=== PATIENT | female | born 1955 | race Asian ===

== ENCOUNTER 2017-09-27 23:19 | Emergency (ER) | payer SELFPAY ==
[2017-09-27 23:32] VITALS: TEMP 98.2
[2017-09-28] MEDS ORDERED: FAMOTIDINE 20 MG/2 ML SDV IVP ONE (00:10)
[2017-09-28] MEDS ORDERED: methylPREDNISolone SOD SUCC 125 MG/2 ML VIAL IVP ONE (00:10)
--- NOTE | 2017-09-28 00:12 | EDPHY ---
H & P Stated Complaint: daughter says pt began having allergic rxn approx 1500, unk cause- poss abx Time Seen by Provider: 09/27/17 23:42 HPI/ROS: Chief Complaint: Allergic reaction HPI: 62-year-old woman started taking Macrobid 2 days ago for urinary tract infection. Today she is complaining of itchy eyes is had worsening developing redness and swelling around both of her eyes and her chin. She did take some Claritin and some Benadryl without any relief. Does not have any other rash. A little bit of fullness in scratchiness in her throat. No fevers or chills. No nausea or vomiting. Does have a history of similar reactions in the past. She does have allergies to penicillin and cephalosporins. She has taken clinical lungs in the past for urinary tract infections. ROS: 10 point Review of Systems is negative except as noted in the HPI. PMH: Denies Social History: No smoking, no alcohol, no recreational drug use Family History: non-contributory Physical Exam: Gen: Awake, Alert, No Distress HEENT: Bilateral mild jessie orbital edema with mild erythema which is symmetrical. There is also some urticaria below her mouth on her chin. Nose: no rhinorrhea Eyes: PERRLA, EOMI Mouth: Moist mucosa Neck: Supple, no JVD Chest: nontender, lungs clear to auscultation Heart: S1, S2 normal, no murmur Abd: Soft, non-tender, no guarding Back: no CVA tenderness, no midline tenderness Ext: no edema, non-tender Skin: no rash Neuro: CN II-XII intact, Sensation grossly intact, Strength 5/5 in bilateral upper and lower extremities - Medical/Surgical History Other PMH: hypothyroid - Social History Smoking Status: Never smoked Constitutional: Initial Vital Signs Temperature (C) 36.8 C 09/27/17 23:25 Heart Rate 80 09/27/17 23:25 Respiratory Rate 18 09/27/17 23:25 Blood Pressure 155/91 H 09/27/17 23:25 O2 Sat (%) 93 09/27/17 23:25 O2 Delivery Mode Room Air Allergies/Adverse Reactions: Cephalosporins Allergy (Verified 09/27/17 23:32) Penicillins Allergy (Verified 09/27/17 23:32) salmon Allergy (Uncoded 09/27/17 23:32) Home Medications: Medication Instructions Recorded Levothyroxine 09/27/17 Macrobid 09/27/17 Ciprofloxacin [Cipro] 500 mg PO BID #10 tab 09/28/17 predniSONE 60 mg PO DAILY #9 tab 09/28/17 Medical Decision Making ED Course/Re-evaluation: Patient is improved after Solu-Medrol, Benadryl and Pepcid. Erythema and swelling have improved dramatically. Will discharge with continuing prednisone and Benadryl. Follow up with primary care with the referral in 2 days. Return for worsening. Will start her on ciprofloxacin for urinary tract infection. She will discontinue the Macrobid. - Data Points Medications Given: Discontinued Medications Diphenhydramine HCl (Benadryl Injection) 50 mg IVP EDNOW ONE Stop: 09/28/17 00:11 Last Admin: 09/28/17 00:21 Dose: 50 mg Famotidine (Pepcid) 20 mg IVP EDNOW ONE Stop: 09/28/17 00:11 Last Admin: 09/28/17 00:21 Dose: 20 mg Methylprednisolone Sodium Succinate (Solu-Medrol) 125 mg IVP EDNOW ONE Stop: 09/28/17 00:11 Last Admin: 09/28/17 00:21 Dose: 125 mg Departure - Departure Disposition: Home, Routine, Self-Care Clinical Impression: Allergic reaction Condition: Good Instructions: General Allergic Reaction (ED) Additional Instructions: Take prednisone every day for the next 3 days. You may take Benadryl, 2 tablets every 4 hours. Discontinue taking the nitrofurantoin. Start taking ciprofloxacin for urinary tract infection. Follow up with primary care physician in 2-3 days for further evaluation. Return to the emergency depart for increasing swelling, fevers, chills, cough, shortness of breath, or any other concerns. Referrals: Coby Su MD [Medical Doctor] - As per Instructions Prescriptions: Ciprofloxacin [Cipro] 500 mg PO BID #10 tab predniSONE 60 mg PO DAILY #9 tab
[2017-09-28 03:21] VITALS: BP 131/75; PULSE 76; RESP 17; O2SAT 94
== END 2017-09-28 03:19 | disposition home or self-care (01) ==
DX: L29.9 Pruritus, unspecified (principal); T37.8X5A Adverse effect of other specified systemic anti-infectives and antiparasitics, initial encounter
CPT/HCPCS: 96374; J1200; J2930